=== PATIENT | male | born 1970 | race Caucasian/White ===

== ENCOUNTER 2020-10-01 01:54 | Emergency (ER) | payer MEDICAID ==
[~2020-10-01] VITALS: Ht 170.2 cm; Wt 59.9 kg
[2020-10-01 02:01] VITALS: Ht 170.2 cm; Wt 59.9 kg
[2020-10-01] MEDS ORDERED: IBU600 M2 PO (02:37)
[2020-10-01] MEDS ORDERED: BLEPH-105 ML OU (02:37)
[2020-10-01 03:11] VITALS: BP 123/88
== END 2020-10-01 03:11 | disposition home or self-care (01) ==
LOC: ED 01:54
DX: H16.8 Other keratitis (principal)